=== PATIENT | female | born 1965 | race Caucasian/White ===

== ENCOUNTER 2016-04-09 23:18 | Emergency (ER) | payer BC ==
[2016-04-09 23:28] VITALS: BMI 34.3
[2016-04-09 23:51] LABS: AUTOMATED BASOPHIL 0.5 % (0-2); AUTOMATED EOSINOPHIL 1.1 % (0-5); AUTOMATED LYMPH 12.1 % (17-44); AUTOMATED MONOCYTE 9.8 % (3-10); AUTOMATED NEUTROPHIL 76.5 % (45-76); MPV 8.3 fL (7.4-10.4)
[2016-04-09] MEDS ORDERED: HEPARIN 500 ML IV SCH (23:52)
--- NOTE | 2016-04-09 23:52 | EDPRACDOC ---
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 PT STATES SHE HAS HAD BRONCHITIS FOR THE PAST WEEK WITH COUGH AND SHOB. STATES THE PAIN IS SHARP, STABBING. PT PRESENTS WITH NAUSEA AND VOMITING. PT DENIES PMH OF HTN, DIABETES OR HYPERLIPIDEMIA. PT DENIES PAST FAMILY CARDIAC HISTORY. PT IS A SMOKER FOR THE PAST 13 YEARS. PT HAS NEVER HAD A STRESS TEST OR CARDIAC TEST. Chest Pain Location: Reports: Left Chest Pain Radiation: Reports: Shoulder (L), Arm (L) Symptoms Occur: Reports: Gradually Cardiac Risk Factors: Reports: Smoker Cardiac History of: Reports: None PE Risk Factors: Reports: None Medications within 24 Hours: Reports: None Prehospital Care: Reports: None Pain Came On: Reports: Gradually Pain Status: Present Now Pain Description: Reports: Sharp, Stabbing Pain Severity: Moderate Pain Worsens With: Reports: Nothing Pain Improves With: Reports: Nothing Associated Signs and Symptoms: Reports: Nausea, Vomiting <Misti Xiao - Last Filed: 04/09/16 23:47> <Yousuf Marquez - Last Filed: 04/10/16 00:20> - General Information Chief Complaint: Chest Pain Stated Complaint: CHEST PAIN Time Seen by Provider: 04/09/16 23:42 Allergies/Adverse Reactions: Allergies Allergy/AdvReac Type Severity Reaction Status Date / Time No Known Allergies Allergy Verified 04/09/16 23:27 ED Past Medical History - History Reviewed Yes Nurses notes reviewed and agree except as marked <Misti Xiao - Last Filed: 04/09/16 23:47> EDM Review of Systems - Review of Systems ROS Negative Except as Marked: Yes All systems reviewed and were negative except as marked <Misti Xiao - Last Filed: 04/09/16 23:47> - Physical Exam Constitutional: Alert Oriented to: Time, Person, Place Last recorded Vital Signs: Last Vital Signs Temp 98.5 F 04/09/16 23:24 Pulse 86 04/09/16 23:24 Resp 20 04/09/16 23:24 BP 128/67 04/09/16 23:24 Pulse Ox 97 04/09/16 23:24 Oxygen Pulse Oxygen Saturation 97 O2 Device Room Air Oxygen Flow Rate Fraction of Inspired Oxygen ( FIO2) - HEENT Head: Normal ( normocephalic) Eye Exam: Normal (PERRL, EOMI, Sclera white) Oropharynx: Normal (Pharynx:Moist without exudate,Gums-no swelling) Nose: No Symptoms Reported (septum midline) Neck: Normal (FROM, trachea at midline) - Respiratory/Cardiovascular Respiratory: Normal - CTA (BBS clear to auscultation without adventitious sounds ) Cardiovascular: Normal (RRR without murmur, gallop or rub) - GI Auscultation: Normal (NABS) Palpation: Normal (Soft,No rebound or guarding, non distended) Tenderness: Non tender Oro's Sign: Negative Rectal Exam: Deferred - Musculoskeletal Back: Normal (Non-Tender) Extremities: Normal (Normal tone, Pulses 2+ No cyanosis or edema, FROM) - Integumentary Skin: Normal, Warm, Dry Lymphatics: Normal (no adenopathy) - Neurologic Memory Impaired: Normal Motor Function: Normal (Normal tone, Pulses 2+ No cyanosis or edema, FROM) Cranial Nerve: Normal (CN II-X11 intact sensation, strength 5/5) Cerebellar: Normal Mood Description: Normal Perception: Normal <Misti Xiao - Last Filed: 04/09/16 23:47> - Physical Exam Last recorded Vital Signs: Last Vital Signs Temp 98.5 F 04/09/16 23:24 Pulse 66 04/09/16 23:48 Resp 18 04/09/16 23:48 BP 113/67 04/09/16 23:48 Pulse Ox 94 04/09/16 23:48 Oxygen Pulse Oxygen Saturation 94 O2 Device Room Air Oxygen Flow Rate Fraction of Inspired Oxygen ( FIO2) <Yousuf Marquez - Last Filed: 04/10/16 00:20> ED Chest Pain Exam - Respiratory/Cardiovascular Respiratory: Normal - CTA Cardiovascular/Chest: Normal Radial Pulse: Normal Femoral Pulse: Normal Pedal Pulse: Normal Carotid Arteries: Normal Edema: negative: 1+, 2+, 3+, 4+, 5, 6 Chest Palpation: Normal <Misti Xiao - Last Filed: 04/09/16 23:47> - Differential Diagnosis Angina, CHF, Pneumonia - Action Patient received Aspirin within last 24 hours?: No ASA given in the ED: No Patient received Beta Fang within last 24hrs: No - Results All Results Reviewed and Normal except as Highlighted below: Yes <Misti Xiao W - Last Filed: 04/09/16 23:47> - Action ASA given in the ED: Yes - Re-evaluation Re-evaluation 1 Re-evaluation Time: 00:15 (PATIENT RECEIVED 1 NITRO WHICH CAUSED B/P TO FALL TO 80 SYSTOLIC. FUTHER NITRO HELD. PAIN UNRELIEVED) - Results 04/09/16 23:45 04/09/16 23:45 WBC 11.7 xk/uL (3.8-10.8) H 04/09/16 23:45 RBC 4.49 xM/uL (4.20-5.40) 04/09/16 23:45 Hgb 13.7 g/dL (12.0-16.0) 04/09/16 23:45 Hct 40.9 % (36-47) 04/09/16 23:45 MCV 91 fL (81-99) 04/09/16 23:45 MCH 30.5 pg (27-32) 04/09/16 23:45 MCHC 33.5 g/dl (33-36) 04/09/16 23:45 RDW 13.8 % (11.5-14.5) 04/09/16 23:45 Plt Count 304 xk/uL (130-400) 04/09/16 23:45 MPV 8.3 fL (7.4-10.4) 04/09/16 23:45 Neut % (Auto) 76.5 % (45-76) H 04/09/16 23:45 Lymph % (Auto) 12.1 % (17-44) L 04/09/16 23:45 [place] % (Auto) 9.8 % (3-10) 04/09/16 23:45 Eos % (Auto) 1.1 % (0-5) 04/09/16 23:45 Baso % (Auto) 0.5 % (0-2) 04/09/16 23:45 Absolute Neuts (auto) 8.89 xk/uL (1.7-8.2) H 04/09/16 23:45 Absolute Lymphs (auto) 1.40 xk/uL (0.65-4.75) 04/09/16 23:45 PT 10.2 SEC (9.2-11.2) 04/09/16 23:45 INR 1.0 04/09/16 23:45 APTT 22.8 SEC (22-35) 04/09/16 23:45 Lab Results 04/09/16 04/09/16 23:45 23:45 WBC 11.7 H RBC 4.49 Hgb 13.7 Hct 40.9 MCV 91 MCH 30.5 MCHC 33.5 RDW 13.8 Plt Count 304 MPV 8.3 Neut % (Auto) 76.5 H Lymph % (Auto) 12.1 L [place] % (Auto) 9.8 Eos % (Auto) 1.1 Baso % (Auto) 0.5 Absolute Neuts (auto) 8.89 H Absolute Lymphs (auto) 1.40 PT 10.2 INR 1.0 APTT 22.8 Laboratory Results - last 24 hr 04/09/16 04/09/16 23:45 23:45 WBC 11.7 H RBC 4.49 Hgb 13.7 Hct 40.9 MCV 91 MCH 30.5 MCHC 33.5 RDW 13.8 Plt Count 304 MPV 8.3 Neut % (Auto) 76.5 H Lymph % (Auto) 12.1 L [place] % (Auto) 9.8 Eos % (Auto) 1.1 Baso % (Auto) 0.5 Absolute Neuts (auto) 8.89 H Absolute Lymphs (auto) 1.40 PT 10.2 INR 1.0 APTT 22.8 Laboratory Results 04/09/16 23:45 - EKG EKG #1 EKG Time: 23:31 Rate: bpm: 64 [place]: Normal Rhythm: NSR Block: None Hypertrophy: None ST: Inf, Infarct (ELEVATION III, AVF) EKG #2 EKG Time: 23:42 -: Yes EKG interpreted by me Rate: bpm: 72 [place]: Normal Rhythm: NSR Block: None Hypertrophy: None ST: Inf, Infarct (ST ELEVATION III, AVF) <Yousuf Marquez - Last Filed: 04/10/16 00:20> ED Critical Care Note - Critical Care Note Total Time (mins): 30 <Yousuf Marquez - Last Filed: 04/10/16 00:20> - Departure Disposition: Trans. to Other Hospital Education/Counseling Given To: Patient Education/Counseling Given Regarding: Diagnosis, Treatment, Prognosis, Follow Up <Misti Xiao - Last Filed: 04/09/16 23:47> - Departure Yes I personally saw and evaluated the patient. Decision to Transfer Time: 00:19 - Physician Consulted Other Time Called: 00:19 Provider Called: DR. CAMACHO ([employer]) Time [employer] Returned Call: 00:20 (WILL ACCEPT) <Yousuf Marquez - Last Filed: 04/10/16 00:20> - Departure Condition: Stable Final Diagnosis: ST elevation myocardial infarction (STEMI) of inferior wall Instructions: Chest Pain (ED) Referrals: Divina Shepard MD [Primary Care Provider] - One Week
[2016-04-10 00:04] LABS: PARTIAL THROMB. TIME 22.8 SEC (22-35)
[2016-04-10] MEDS ORDERED: NITROGLYCERINE 0.4 MG TAB SL ONE (00:14)
[2016-04-10] MEDS ORDERED: MORPHINE 4 MG/ML INJECTION IV ONE (00:14)
[2016-04-10 00:23] VITALS: PULSE 70; TEMP 98
--- NOTE | 2016-04-10 00:29 | DIRPT ---
CLINICAL DATA: Midsternal chest pain and shortness of breath. EXAM: PORTABLE CHEST 1 VIEW COMPARISON: 07/11/2009 FINDINGS: The cardiomediastinal contours are normal. The lungs are clear. Pulmonary vasculature is normal. No consolidation, pleural effusion, or pneumothorax. No acute osseous abnormalities are seen. IMPRESSION: No acute pulmonary process. Electronically Signed By: Nat Rashid M.D. On: 04/10/2016 00:26
[2016-04-10 00:34] LABS: BLOOD UREA NITROGEN 17 MG/DL (7-17); CALCIUM 8.8 MG/DL (8.4-10.2); CALCULATED OSMOLALITY 274 MOs/Kg (270-290); CHLORIDE 106 mEq/L (98-107); GLUCOSE 123 mg/dL (70-99); SODIUM LEVEL 141 mEq/L (137-146); TOTAL PROTEIN 7.2 G/DL (6.3-8.2)
[2016-04-10 00:38] VITALS: BP 90/62
[2016-04-10] MEDS ORDERED: HEPARIN 500 ML IV SCH (01:00)
[2016-04-10] MEDS ORDERED: HEPARIN 5000 UNITS/ML VIAL IV ONE (01:00)
== END 2016-04-10 00:25 | disposition short-term general hospital (02) ==
LOC: ED 23:18
DX: I21.19 ST elevation (STEMI) myocardial infarction involving other coronary artery of inferior wall (principal)
CPT/HCPCS: 36415; 71010; 80053; 83880; 84484; 85025; 85610; 85730; 93005; 96374; 96375; 96376; 99285; J1644; J2270; J3490